=== PATIENT | female | born 1985 | race Caucasian/White ===

== ENCOUNTER 2018-03-29 11:31 | Emergency (ER) | payer MEDICAID ==
[~2018-03-29] VITALS: Ht 172.7 cm; Wt 100.0 kg
[2018-03-29] MEDS ORDERED: CLOT12CR TP (11:40)
[2018-03-29 13:55] VITALS: BP 128/85
== END 2018-03-29 13:56 | disposition home or self-care (01) ==
LOC: EMS 11:32
DX: B35.4 Tinea corporis (principal); Z79.899 Other long term (current) drug therapy; Z88.8 Allergy status to other drugs, medicaments and biological substances
CPT/HCPCS: 99283

== ENCOUNTER 2024-03-18 20:07 | Emergency (ER) | payer MEDICAID, OTHER ==
[~2024-03-18] VITALS: Ht 175.3 cm; Wt 100.0 kg
[~2024-03-18 20:07] MED LIST: CLOT12CR TP
[2024-03-18 20:39] VITALS: TEMP 99.8
[2024-03-18 22:01] VITALS: BP 127/85; PULSE 108; RESP 16
[2024-03-18] MEDS: HYDROCODONE/ACETAMINOPHEN 5-325 MG TABLET PO ONE (22:20)
[2024-03-18] MEDS: DOXYCYCLINE HYCLATE 100 MG TABLET PO ONE (22:20)
[2024-03-18] MEDS: CEPHALEXIN MONOHYDRATE 500 MG CAPSULE PO ONE (22:20)
[2024-03-19] MEDS ORDERED: DOXY-354 PO (11:06)
[2024-03-19] MEDS ORDERED: IBUP-1492 PO (11:06)
[2024-03-19] MEDS ORDERED: CEPH-558 PO (11:06)
== END 2024-03-18 22:35 | disposition home or self-care (01) ==
LOC: EMS 20:07
DX: S70.361A Insect bite (nonvenomous), right thigh, initial encounter (principal); L03.115 Cellulitis of right lower limb; Z98.890 Other specified postprocedural states; Z88.8 Allergy status to other drugs, medicaments and biological substances; W57.XXXA Bitten or stung by nonvenomous insect and other nonvenomous arthropods, initial encounter; Y93.89 Activity, other specified; Y92.89 Other specified places as the place of occurrence of the external cause; Y99.8 Other external cause status
CPT/HCPCS: 99284; Z7502; Z7610

== ENCOUNTER 2024-09-03 12:59 | Emergency (ER) | payer OTHER ==
[~2024-09-03] VITALS: Ht 175.3 cm; Wt 109.1 kg
[~2024-09-03 12:59] MED LIST changes: +CEPH-558 PO; +DOXY-354 PO; +IBUP-1492 PO
[2024-09-03 13:16] VITALS: BP 145/81; PULSE 103; RESP 16; TEMP 98.3; O2SAT 98
[2024-09-03] MEDS ORDERED: NPH,100I SQ (13:23)
[2024-09-03] MEDS ORDERED: ASPI-1451 PO (13:23)
[2024-09-03] MEDS ORDERED: INSU100I15 SQ (13:23)
[2024-09-03] MEDS ORDERED: CEPH-558 PO (14:47)
== END 2024-09-03 15:00 | disposition home or self-care (01) ==
LOC: EMS 12:59
DX: O99.712 Diseases of the skin and subcutaneous tissue complicating pregnancy, second trimester (principal); L02.415 Cutaneous abscess of right lower limb; Z3A.15 15 weeks gestation of pregnancy; Z88.8 Allergy status to other drugs, medicaments and biological substances; Z79.4 Long term (current) use of insulin
CPT/HCPCS: 99283; Z7502